=== PATIENT | female | born 1955 | race African-American/Black ===

== ENCOUNTER 2024-03-31 17:25 | Emergency (ER) | payer OTHER ==
[~2024-03-31] VITALS: Ht 160 cm; Wt 95.0 kg
[2024-03-31 17:28] VITALS: O2SAT 92
[2024-03-31 18:55] LABS: BASOPHILS % 0.8 % (0.0-2.0); DIFFERENTIAL COMMENT 0; EOSINOPHILS % 1.8 % (0.0-5.0); HEMATOCRIT. 32.6 % (36.0-48.0); HEMOGLOBIN. 10.5 g/dL (12.0-16.0); LYMPHOCYTES % 25.9 % (20.0-50.0); MEAN CORPUSCULAR HEMOGLOBIN 23.1 pg (28.0-32.0); MEAN CORPUSCULAR HGB CONC 32.1 g/dL (31.0-37.0); MEAN CORPUSCULAR VOLUME 71.8 fL (81.0-99.0); NEUTROPHILS % 67.5 % (40.0-76.0); PLATELET 152 x1000/uL (130-400); RED BLOOD CELL COUNT 4.53 mill/uL (4.2-5.4); RED CELL DISTRIBUTION WIDTH 13.6 % (11.6-14.6); WHITE BLOOD COUNT 3.8 x1000/uL (4.5-11.0)
[2024-03-31 19:02] LABS: CARBON DIOXIDE 26 mEq/L (21-32); CHLORIDE 106 mEq/L (98-107); POTASSIUM 3.5 mEq/L (3.5-5.1); SODIUM 137 mEq/L (136-145)
[2024-03-31 19:03] LABS: CALCIUM 8.7 mg/dL (8.7-10.4)
[2024-03-31 19:07] LABS: CREATININE 3.9 mg/dL (0.6-1.0); GLUCOSE 247 mg/dL (70-105); LACTIC ACID 2.4 mmol/L (0.4-2.0)
[2024-03-31 19:08] LABS: AMMONIA 19 uMol/L (<32); UREA NITROGEN BLOOD 33 mg/dL (9-23)
[2024-03-31 19:09] LABS: ACETAMINOPHEN < 2 ug/mL (10-30); ALANINE AMINOTRANSFERASE 15 IU/L (10-49); ASPARTATE AMINOTRANSFERASE 21 IU/L (<34)
[2024-03-31 19:10] LABS: BILIRUBIN TOTAL 0.5 mg/dL (0.1-1.0); ETHANOL BLOOD < 10 mg/dL (<10); PROTEIN TOTAL 6.7 g/dL (6.0-8.3); THYROID STIMULATING HORMONE 2.65 uIU/mL (0.55-4.78); TROPONIN I HIGH SENSITIVITY 91 ng/L (3.0-34)
[2024-03-31 19:30] VITALS: BP 160/58; PULSE 62; RESP 16; TEMP 98.4
[2024-03-31 20:44] LABS: TROPONIN I HIGH SENSITIVITY 86 ng/L (3.0-34)
[2024-03-31] MEDS ORDERED: CLONIDINE 0.1MG TABLET PO PRN (21:00)
[2024-03-31] MEDS ORDERED: ACETAMINOPHEN 325MG TABLET PO PRN (21:00)
[2024-03-31] MEDS ORDERED: DOCUSATE SODIUM 100MG CAPSULE PO PRN (21:00)
[2024-03-31] MEDS ORDERED: GUAIFENESIN 200MG/10ML SUGAR FREE UDC PO PRN (21:00)
[2024-03-31] MEDS ORDERED: ONDANSETRON HCL 4MG/2ML INJ IV PRN (21:00)
[2024-03-31] MEDS ORDERED: MAGNESIUM/ALUMINUM HYDROXIDE/SIMETHICONE 30ML UDC PO PRN (21:00)
[2024-03-31] MEDS ORDERED: IPRATROPIUM/ALBUTEROL 0.5-3(2.5)MG/3ML NEB HHN PRN (21:00)
[2024-03-31 21:02] LABS: CLARITY URINE TURBID (CLEAR); COLOR URINE YELLOW (YELLOW); GLUCOSE URINE NEGATIVE (NEGATIVE); KETONES URINE NEGATIVE (NEGATIVE); LEUKOCYTE ESTERASE URINE 3+ (NEGATIVE); NITRITE URINE POSITIVE (NEGATIVE); OCCULT BLOOD URINE 2+ (NEGATIVE); PROTEIN URINE 3+ (NEGATIVE); SPECIFIC GRAVITY URINE 1.013 (1.005-1.030)
[2024-03-31 21:14] LABS: *AMPHETAMINES SCREEN URINE NEGATIVE (NEGATIVE); *BARBITURATES SCREEN URINE NEGATIVE (NEGATIVE); *BENZODIAZEPINES SCREEN URINE NEGATIVE (NEGATIVE); *COCAINE SCREEN URINE NEGATIVE (NEGATIVE); CANNABINOID URINE SCREEN PRESUMPTIVE POSITIVE (NEGATIVE); ECSTASY MDMA SCREEN URINE NEGATIVE (NEGATIVE); METHADONE URINE SCREEN NEGATIVE (NEGATIVE); OPIATES URINE SCREEN NEGATIVE (NEGATIVE); PHENCYCLIDINE URINE SCREEN NEGATIVE (NEGATIVE)
[2024-03-31] MEDS ORDERED: DEXTROSE 50% WATER 50ML SYRINGE IV PRN (21:15)
[2024-03-31 21:18] LABS: BACTERIA URINE 3+; SQUAMOUS EPITHELIAL CELL URINE 1+ /lpf (RARE/1+); WBC URINE TNTC /hpf (0-2)
[2024-03-31] MEDS ORDERED: KCL 20MEQ/100ML PREMIX 100 ML IV NR (21:30)
[2024-03-31] MEDS ORDERED: CEFTRIAXONE 1GM/50ML 50 ML IV STA (21:45)
[2024-03-31 21:59] LABS: IRON 64 ug/dL (50-170)
[2024-03-31] MEDS ORDERED: CEFTRIAXONE 1GM/50ML 50 ML IV SCH (22:00)
[2024-03-31] MEDS ORDERED: SODIUM CHLORIDE 0.9% 500 ML IV NR (22:00)
[2024-03-31 22:02] LABS: PHOSPHORUS 4.7 mg/dL (2.5-4.9); TOTAL IRON BINDING CAPACITY 263 ug/dl (250-425)
[2024-03-31 22:06] LABS: FERRITIN 28 ng/mL (10-291); FOLIC ACID (FOLATE) SERUM 15.87 ng/mL (>5.38); VITAMIN B12 SERUM 425 pg/mL (211-911)
[2024-03-31] MEDS ORDERED: LACTATED RINGERS 1,000 ML IV ONE (22:15)
[2024-04-01] MEDS ORDERED: INSULIN LISPRO 100 UNITS/ML SUBCUT SCH (08:20)
[2024-04-01] MEDS ORDERED: BLOOD SUGAR DIAGNOSTIC STRIP TEST SCH (09:00)
[2024-04-01] MEDS ORDERED: FAMOTIDINE 20MG/2ML VIAL IV SCH (09:00)
[2024-04-01 14:31] LABS: *AMPHETAMINES SCREEN URINE NEGATIVE (NEGATIVE); *BARBITURATES SCREEN URINE NEGATIVE (NEGATIVE); *BENZODIAZEPINES SCREEN URINE NEGATIVE (NEGATIVE)
[2024-04-01 14:32] LABS: *COCAINE SCREEN URINE NEGATIVE (NEGATIVE); CANNABINOID URINE SCREEN PRESUMPTIVE POSITIVE (NEGATIVE); ECSTASY MDMA SCREEN URINE NEGATIVE (NEGATIVE); METHADONE URINE SCREEN NEGATIVE (NEGATIVE); OPIATES URINE SCREEN NEGATIVE (NEGATIVE); PHENCYCLIDINE URINE SCREEN NEGATIVE (NEGATIVE)
== END 2024-03-31 21:28 | disposition left against medical advice (07) ==
LOC: ER 17:25 → EDBEDREQ 20:30 → EDBEDREQTM 20:30 → ER 21:28 → CANBEDREQ 21:51
DX: G93.49 Other encephalopathy (principal); F12.90 Cannabis use, unspecified, uncomplicated; R79.89 Other specified abnormal findings of blood chemistry; E11.9 Type 2 diabetes mellitus without complications; E78.00 Pure hypercholesterolemia, unspecified; N17.9 Acute kidney failure, unspecified
CPT/HCPCS: 36415; 71045; 80053; 80305; 80307; 80320; 80329; 81003; 82140; 82607; 82728; 82746; 83036; 83540; 83550; 83605; 83735; 83880; 84100; 84145; 84443; 84484; 85025; 87077; 87186; 93005; 99291; G0480